=== PATIENT | male | born 1990 | race African-American/Black ===

== ENCOUNTER 2017-05-08 21:33 | Inpatient (IN) | payer SELFPAY ==
[2017-05-08] MEDS ORDERED: RINGERS SOLUTION,LACTATED 2,000 ML IV ONE (21:41)
--- NOTE | 2017-05-08 21:46 | ER Document Report ---
ED General - General Stated Complaint: INCREASED URINATION Time Seen by Provider: 05/08/17 21:41 Notes: Patient is a 27-year-old male without past medical history who presents with 2 weeks of progressively worsening polyuria, polydipsia, and generalized malaise. Patient reports that today he became so weak and felt so terrible that he contacted 911. He arrives somewhat lethargic but is able to respond to questions. He denies a history of similar symptoms in the past. He has no prior history of diabetes. Nothing is seem to improve or worsening symptoms. He has not seen his primary care doctor regarding today's concerns as he does not have one. He denies any vomiting or diarrhea. No chest pain or shortness of breath. He denies any localizing infectious symptoms. - Related Data Allergies/Adverse Reactions: No Known Allergies Allergy (Verified 05/08/17 22:07) Home Medications: Current Home Medications No Home Medications 05/08/17 [History] Past Medical History - General Information source: Patient - Social History Smoking Status: Never Smoker Frequency of alcohol use: None Drug Abuse: None Lives with: Spouse/Significant other Family History: Reviewed & Not Pertinent Review of Systems - Review of Systems Notes: Constitutional: Negative for fever. Positive for generalized malaise HENT: Negative for sore throat. Eyes: Negative for visual changes. Cardiovascular: Negative for chest pain. Respiratory: Negative for shortness of breath. Gastrointestinal: Negative for abdominal pain, vomiting or diarrhea. Genitourinary: Negative for dysuria. Musculoskeletal: Negative for back pain. Skin: Negative for rash. Neurological: Negative for headaches, weakness or numbness. 10 point ROS negative except as marked above and in HPI. Physical Exam - Vital signs Vitals: Temp 97.7 F 05/08/17 21:35 Interpretation: Tachycardic Notes: PHYSICAL EXAMINATION: GENERAL: Mildly lethargic, somewhat ill in appearance but in no acute distress HEAD: Atraumatic, normocephalic. EYES: Pupils equal round and reactive to light, extraocular movements intact, sclera anicteric, conjunctiva are normal. ENT: nares patent, oropharynx clear without exudates. Dry mucous membranes. NECK: Normal range of motion, supple without lymphadenopathy LUNGS: Breath sounds clear to auscultation bilaterally and equal. No wheezes rales or rhonchi. HEART: Regular tachycardia without murmurs ABDOMEN: Soft, nontender, normoactive bowel sounds. No guarding, no rebound. No masses appreciated. EXTREMITIES: Normal range of motion, no pitting or edema. No cyanosis. NEUROLOGICAL: No focal neurological deficits. Moves all extremities spontaneously and on command. PSYCH: Somewhat lethargic GCS is 15 SKIN: Warm, Dry, poor skin turgor, no rashes or lesions noted. Course - Re-evaluation Re-evalutation: 05/08/17 21:45 Patient presents quite ill in appearance, tachycardic, tachypneic with Kussmaul respirations and smells strongly of ketones. And very concerning for new onset diabetes of the presentation of diabetic ketoacidosis. Patient was immediately placed on telemetry. 2 points of IV access will be established and I will open up 2 L of lactated Ringer's wide open. Will hold on insulin until we have clarified the remainder of his labs. Patient is critically ill at this time given his vitals, appearance, and moderate lethargy. Will continue to reassess frequently. 05/08/17 22:29 Initial laboratories are showing a blood pH of 7.04 with an associated compensatory respiratory alkalosis. This is consistent with diabetic ketoacidosis. IV fluids are ongoing. Awaiting the remainder laboratories prior to starting insulin infusion. 05/08/17 22:54 Labs show potassium at 3.8. D5 LR started 300 cc/hr along with an insulin infusion at 0.14units/kg/hr with possium riders at 10 mEq per hour. His mental status remains somewhat lethargic but GCS 15. Have discussed case with Dr. Yusuf who will admit the patient. 05/09/17 00:57 Patient's arrived to the hospital report that the patient had taken "a lot of aspirin". The patient denies this claims that he only took 2-3 aspirin tablets a day and does not know what his is talking about. Salicylate acid level was sent and does not show any concerning elevation of aspirin. Patient continues with a GCS of 15. - Vital Signs Vital signs: Temp Pulse Resp BP Pulse Ox 98.3 F 105 H 20 144/91 H 100 05/09/17 01:51 05/09/17 01:51 05/09/17 01:51 05/09/17 01:51 05/09/17 01:51 - Laboratory Result Diagrams: 05/08/17 22:00 05/09/17 00:03 Laboratory results interpreted by me: 05/08/17 05/08/17 05/08/17 21:44 22:00 22:00 WBC 10.9 H RBC 5.77 H Hgb 17.2 H Hct 51.9 H Band Neutrophils % 8 H Metamyelocytes % 2 H Abs Neuts (Manual) 8.6 H VBG pH VBG pCO2 VBG HCO3 Sodium 136.0 L Carbon Dioxide < 5 L* Glucose 297 H POC Glucose 262 H Magnesium AST 14 L Total Protein 9.2 H Albumin 5.1 H Urine Protein Urine Glucose (UA) Urine Ketones Urine Blood 05/08/17 05/08/17 05/08/17 22:00 22:00 22:28 WBC RBC Hgb Hct Band Neutrophils % Metamyelocytes % Abs Neuts (Manual) VBG pH 7.04 L* VBG pCO2 22.5 L VBG HCO3 5.9 L Sodium Carbon Dioxide Glucose POC Glucose Magnesium 2.4 H AST Total Protein Albumin Urine Protein 100 H Urine Glucose (UA) >=500 H Urine Ketones 80 H Urine Blood MODERATE H 05/08/17 23:00 WBC RBC Hgb Hct Band Neutrophils % Metamyelocytes % Abs Neuts (Manual) VBG pH VBG pCO2 VBG HCO3 Sodium Carbon Dioxide Glucose POC Glucose 241 H Magnesium AST Total Protein Albumin Urine Protein Urine Glucose (UA) Urine Ketones Urine Blood - EKG Interpretation by Me Additional EKG results interpreted by me: 05/09/17 03:33 Sinus tachycardia. Rate 107. No ST elevations or depressions. QTC is 475. Critical Care Note - Critical Care Note Total time excluding time spent on procedures (mins): 37 Comments: Critical care time spent obtaining history from patient or surrogate, discussions with consultants, development of treatment plan with patient or surrogate, evaluation of patient's response to treatment, examination of patient , ordering and performing treatments and interventions, ordering and review of laboratory studies, re-evaluation of patient's condition, ordering and review of radiographic studies and review of old charts Discharge - Discharge Clinical Impression: Diabetic ketoacidosis Qualifiers: Diabetes mellitus type: type 1 Diabetes mellitus complication detail: without coma Qualified Code(s): E10.10 - Type 1 diabetes mellitus with ketoacidosis without coma Condition: Fair Disposition: ADMITTED INPATIENT Admitting Provider: [facility] Unit Admitted: [facility]
[2017-05-08 22:16] LABS: VENOUS BLOOD BASE EXCESS -23.3 mmol/L; VENOUS BLOOD HCO3 5.9 mmol/L (20-32); VENOUS BLOOD PCO2 22.5 mmHg (35-63)
[2017-05-08 22:18] LABS: HEMATOCRIT 51.9 % (37.9-51.0); HEMOGLOBIN 17.2 g/dL (13.5-17.0); MEAN CORPUSCULAR HEMOGLOBIN 29.9 pg (27.0-33.4); MEAN CORPUSCULAR HGB CONC 33.2 g/dL (32.0-36.0); MEAN CORPUSCULAR VOLUME 90 fl (80-97); PLATELET COUNT 175 10^3/uL (150-450); RED BLOOD COUNT 5.77 10^6/uL (4.35-5.55); RED CELL DISTRIBUTION WIDTH 13.7 % (11.5-14.0); WHITE BLOOD COUNT 10.9 10^3/uL (4.0-10.5)
[2017-05-08 22:19] LABS: VENOUS BLOOD PH 7.04 (7.30-7.42)
[2017-05-08] MEDS ORDERED: ONDANSETRON HCL INJ/PF 4 MG/2 ML SDV IV ONE (22:28)
[2017-05-08 22:34] LABS: ALBUMIN 5.1 g/dL (3.5-5.0); BLOOD UREA NITROGEN 12 mg/dL (7-20); CALCIUM 9.4 mg/dL (8.4-10.2); CHLORIDE 103 mmol/L (98-107); GLUCOSE 297 mg/dL (75-110); POTASSIUM 3.8 mmol/L (3.6-5.0); TOTAL PROTEIN 9.2 g/dL (6.3-8.2)
[2017-05-08 22:36] LABS: ALANINE AMINOTRANSFERASE 26 U/L (21-72); ALKALINE PHOSPHATASE 120 U/L (38-126); ASPARTATE AMINO TRANSFERASE 14 U/L (17-59); BILIRUBIN,DIRECT 0.4 mg/dL (0.0-0.4); BILIRUBIN,TOTAL 0.5 mg/dL (0.2-1.3)
[2017-05-08 22:42] LABS: ABSOLUTE LYMPHOCYTES# (MANUAL) 1.9 10^3/uL (0.5-4.7); ABSOLUTE MONOCYTES # (MANUAL) 0.4 10^3/uL (0.1-1.4); ABSOLUTE NEUTROPHILS# (MANUAL) 8.6 10^3/uL (1.7-8.2); BAND NEUTROPHILS % (MANUAL) 8 % (3-5); BASOPHILS % (MANUAL) 0 % (0-2); EOSINOPHILS % (MANUAL) 0 % (0-6); LYMPHOCYTES % (MANUAL) 17 % (13-45); METAMYELOCYTES % (MANUAL) 2 % (0); MONOCYTES % (MANUAL) 4 % (3-13); SEGMENTED NEUTROPHILS % (MAN) 69 % (42-78); TOTAL CELLS COUNTED 100
[2017-05-08 22:44] LABS: PLATELET COMMENT ADEQUATE; PLATELET GIANT PRESENT; PLATELET LARGE PRESENT; TOXIC GRANULATION 1+; TOXIC VACUOLATION PRESENT
[2017-05-08 22:50] LABS: CARBON DIOXIDE < 5 mmol/L (22-30)
[2017-05-08] MEDS ORDERED: DEXTROSE 5%-LACTATED RINGERS 1,000 ML IV ONE (22:53)
[2017-05-08] MEDS ORDERED: POTASSI CL 20 MEQ/50 ML RIDER 20 MEQ/50 ML RTUPB IV SCH (22:53)
[2017-05-08] MEDS ORDERED: INSULIN REG, HUMAN 100 UNIT/ML 3 ML VIAL (PYX) IV ONE (22:54)
[2017-05-08 22:59] LABS: APPEARANCE,URINE CLEAR; BILIRUBIN,URINE NEGATIVE (NEGATIVE); COLOR,URINE STRAW; GLUCOSE, URINE >=500 mg/dL (NEGATIVE); KETONES,URINE 80 mg/dL (NEGATIVE); LEUKOCYTE ESTERASE,URINE NEGATIVE (NEGATIVE); NITRITE,URINE NEGATIVE (NEGATIVE); PROTEIN,URINE 100 mg/dL (NEGATIVE); URINE SPECIFIC GRAVITY 1.023; UROBILINOGEN,URINE NEGATIVE mg/dL (<2.0)
[2017-05-08] MEDS ORDERED: NORMAL SALINE 1000 ML 2,000 ML IV ONE (22:59)
[2017-05-08] MEDS ORDERED: ONDANSETRON HCL INJ/PF 4 MG/2 ML SDV IV PRN (23:00)
[2017-05-08] MEDS ORDERED: ACETAMINOPHEN 325 MG TABLET PO PRN (23:00)
[2017-05-08] MEDS ORDERED: DEXTROSE 40% GEL 15 GM TUBE PO PRN ×2 (23:05)
[2017-05-08] MEDS ORDERED: GLUCAGON,HUMAN RECOMB 1 MG INJ IM PRN (23:05)
[2017-05-08] MEDS ORDERED: DEXTROSE 50%-WATER 25 GM/50 ML DISP.SYRIN IV PRN ×2 (23:05)
[2017-05-08] MEDS ORDERED: SODIUM BICARBONATE 8.4% INJ 50 MEQ/50 ML DISP.SYRIN IV ONE (23:55)
[2017-05-09] MEDS: POTASSI CL 20 MEQ/D5NS 1L 20 MEQ/1,000 ML RTUINJ IV PRN ×2 (00:01→04:13)
[2017-05-09 00:37] LABS: BLOOD UREA NITROGEN 11 mg/dL (7-20); CALCIUM 8.7 mg/dL (8.4-10.2); CHLORIDE 107 mmol/L (98-107); GLUCOSE 269 mg/dL (75-110); POTASSIUM 3.8 mmol/L (3.6-5.0); SODIUM 136.5 mmol/L (137-145)
--- NOTE | 2017-05-09 00:38 | PDOC H&P ---
History of Present Illness Admission Date/PCP: 05/08/17 23:13 No PCP History of Present Illness: JOANNA DIAS is a 27 year old male who presents to the emergency department with complaints of nausea, vomiting, shortness of breath. Patient was found to be in DKA with a pH of 7.4, bicarb <5, and ketones in the urine. Patient reports he has over the past two weeks been feeling poorly with significant polyuria and polydipsia. Patient reports he has been unable to eat. He reports a 10lb weight loss. His significant other reports he took Aspirin today and he admits to taking 3-4 full dose aspirin today. Salicylate and repeat ABG is pending. Past Medical History Medical History: None Past Surgical History Past Surgical History: Reports: None Social History Smoking Status: Never Smoker Frequency of Alcohol Use: None Hx Recreational Drug Use: No Hx Prescription Drug Abuse: No - Advance Directive Resuscitation Status: Full Code Surrogate healthcare decision maker:: Oskar Zimmerman, Mother Family History Family History: DM Parental Family History Reviewed: Yes Children Family History Reviewed: Yes Sibling(s) Family History Reviewed.: Yes Medication/Allergy Home Medications: No Home Medications 05/08/17 Allergies/Adverse Reactions: No Known Allergies Allergy (Verified 05/08/17 22:07) Review of Systems Constitutional: PRESENT: anorexia, weight loss. ABSENT: chills, fever(s), headache(s), weight gain Eyes: ABSENT: visual disturbances Ears: ABSENT: hearing changes Cardiovascular: ABSENT: chest pain, dyspnea on exertion, edema, orthropnea, palpitations Respiratory: PRESENT: dyspnea. ABSENT: cough, hemoptysis, sputum Gastrointestinal: PRESENT: heartburn, nausea, vomiting. ABSENT: abdominal pain , constipation, diarrhea, hematemesis, hematochezia, melena Genitourinary: ABSENT: dysuria, hematuria Musculoskeletal: ABSENT: joint swelling Integumentary: ABSENT: rash, wounds Neurological: ABSENT: abnormal gait, abnormal speech, confusion, dizziness, focal weakness, syncope Psychiatric: ABSENT: anxiety, depression, homidical ideation, suicidal ideation Endocrine: PRESENT: polydipsia, polyuria. ABSENT: cold intolerance, heat intolerance, polyphagia Hematologic/Lymphatic: ABSENT: easy bleeding, easy bruising Physical Exam Vital Signs: Temp Pulse Resp BP Pulse Ox 97.7 F 25 H 163/100 H 100 05/08/17 21:35 05/08/17 22:12 05/08/17 22:12 05/08/17 22:12 General appearance: PRESENT: obese, severe distress, well-developed, well- nourished Head exam: PRESENT: atraumatic, normocephalic Eye exam: PRESENT: conjunctival injection, conjunctiva pink, EOMI, PERRLA. ABSENT: scleral icterus Ear exam: PRESENT: normal external ear exam Mouth exam: PRESENT: dry mucosa, tongue midline Neck exam: ABSENT: JVD, lymphadenopathy, thyromegaly, tracheal deviation Respiratory exam: PRESENT: clear to auscultation bridget, symmetrical, tachypnea, unlabored. ABSENT: accessory muscle use, rales, rhonchi, wheezes Cardiovascular exam: PRESENT: RRR, +S1, +S2. ABSENT: diastolic murmur, rubs, systolic murmur Pulses: PRESENT: normal dorsalis pedis pul Vascular exam: PRESENT: normal capillary refill GI/Abdominal exam: PRESENT: normal bowel sounds, soft. ABSENT: distended, guarding, mass, Chung's sign, organolmegaly, rebound, rigid, tenderness Rectal exam: PRESENT: deferred Extremities exam: PRESENT: full ROM. ABSENT: calf tenderness, clubbing, pedal edema Neurological exam: PRESENT: alert, awake, oriented to person, oriented to place , oriented to time, oriented to situation, CN II-XII grossly intact. ABSENT: motor sensory deficit Psychiatric exam: PRESENT: appropriate affect, normal mood. ABSENT: homicidal ideation, suicidal ideation Skin exam: PRESENT: dry, intact, warm. ABSENT: cyanosis, rash Results Laboratory Results: 05/08/17 05/08/17 05/08/17 22:00 22:00 22:00 WBC 10.9 H Hgb 17.2 H Hct 51.9 H Plt Count 175 VBG pH 7.04 L* VBG pCO2 22.5 L VBG HCO3 5.9 L Sodium 136.0 L Potassium 3.8 Chloride 103 Carbon Dioxide < 5 L* BUN 12 Creatinine 1.11 Glucose 297 H POC Glucose Calcium 9.4 Magnesium Total Bilirubin 0.5 Direct Bilirubin 0.4 AST 14 L ALT 26 Alkaline Phosphatase 120 Troponin I Total Protein 9.2 H Albumin 5.1 H TSH Ur Specific [place] Urine Protein Urine Glucose (UA) Urine Ketones Urine Blood Urine WBC (Auto) Urine RBC (Auto) U Hyaline Cast (Auto) Urine Mucus (Auto) Salicylates 05/08/17 05/08/17 05/08/17 22:00 22:00 22:00 WBC Hgb Hct Plt Count VBG pH VBG pCO2 VBG HCO3 Sodium Potassium Chloride Carbon Dioxide BUN Creatinine Glucose POC Glucose Calcium Magnesium 2.4 H Total Bilirubin Direct Bilirubin AST ALT Alkaline Phosphatase Troponin I < 0.012 Total Protein Albumin TSH 0.61 Ur Specific [place] Urine Protein Urine Glucose (UA) Urine Ketones Urine Blood Urine WBC (Auto) Urine RBC (Auto) U Hyaline Cast (Auto) Urine Mucus (Auto) Salicylates 05/08/17 05/08/17 05/09/17 22:28 23:00 00:03 WBC Hgb Hct Plt Count VBG pH VBG pCO2 VBG HCO3 Sodium Potassium Chloride Carbon Dioxide BUN Creatinine Glucose POC Glucose 241 H Calcium Magnesium Total Bilirubin Direct Bilirubin AST ALT Alkaline Phosphatase Troponin I Total Protein Albumin TSH Ur Specific [place] 1.023 Urine Protein 100 H Urine Glucose (UA) >=500 H Urine Ketones 80 H Urine Blood MODERATE H Urine WBC (Auto) 1 Urine RBC (Auto) 8 U Hyaline Cast (Auto) 20 Urine Mucus (Auto) RARE Salicylates Pending Assessment & Plan - Diagnosis (1) Diabetic ketoacidosis Qualifiers: Diabetes mellitus type: type 1 Diabetes mellitus complication detail: without coma Qualified Code(s): E10.10 - Type 1 diabetes mellitus with ketoacidosis without coma Is this a current diagnosis for this admission?: Yes Plan: Initiate patient on D5NS+20KCL@250mL/hr Initiate Insulin GGT Check troponin q6h Consult inclusion special educator and fourdrinier tender NPO except water and ice chips Zofran prn nausea Check hgbA1c (2) Obesity (BMI 30.0-34.9) Is this a current diagnosis for this admission?: Yes (3) Salicylate overdose Qualifiers: Encounter type: initial encounter Injury intent: accidental or unintentional Qualified Code(s): T39.091A - Poisoning by salicylates, accidental (unintentional), initial encounter Is this a current diagnosis for this admission?: Yes Plan: Concerned for this diagnosis, but unconfirmed at this time Will check a Salicylate level and abg - Time Time Spent: 30 to 50 Minutes Medications reviewed and adjusted accordingly: Yes Within: Other - upon improvement - Inpatient Certification Based on my medical assessment, after consideration of the patient's comorbidities, presenting symptoms, or acuity I expect that the services needed warrant INPATIENT care.: Yes I certify that my determination is in accordance with my understanding of Medicare's requirements for reasonable and necessary INPATIENT services [42 CFR 412.3e].: Yes Medical Necessity: Need For IV Fluids, Need For Continuous Telemetry Monitoring , Risk of Complication if Not Cared For in Hospital Post Hospital Care: D/C Cloth Shader Documentation
[2017-05-09 00:48] LABS: ARTERIAL BLOOD BASE EXCESS -23.6 mmol/L; ARTERIAL BLOOD H2CO3 0.34 mmol/L (1.05-1.35); ARTERIAL BLOOD HCO3 3.4 mmol/L (20-26); ARTERIAL BLOOD O2 SATURATION 97.7 % (94-98); ARTERIAL BLOOD PO2 133.7 mmHg (80-100); ARTERIAL BLOOD TOTAL CO2 3.8 mmol/L (23-27)
[2017-05-09 00:49] LABS: ARTERIAL BLOOD FIO2 ROOM AIR
[2017-05-09 00:51] LABS: ARTERIAL BLOOD PCO2 11.2 mmHg (35-45)
[2017-05-09 00:52] LABS: CARBON DIOXIDE < 5 mmol/L (22-30)
[2017-05-09] MEDS ORDERED: INFLUENZA ADLT QUAD (36MOS+) 2017-18 VAC 0.5 ML SYR IM PRN (02:44)
[2017-05-09 05:14] LABS: HEMATOCRIT 45.8 % (37.9-51.0); HEMOGLOBIN 15.4 g/dL (13.5-17.0); MEAN CORPUSCULAR HEMOGLOBIN 29.9 pg (27.0-33.4); MEAN CORPUSCULAR HGB CONC 33.7 g/dL (32.0-36.0); MEAN CORPUSCULAR VOLUME 89 fl (80-97); PLATELET COUNT 114 10^3/uL (150-450); RED BLOOD COUNT 5.17 10^6/uL (4.35-5.55); RED CELL DISTRIBUTION WIDTH 13.6 % (11.5-14.0); WHITE BLOOD COUNT 9.1 10^3/uL (4.0-10.5)
[2017-05-09 05:22] LABS: BLOOD UREA NITROGEN 10 mg/dL (7-20); CALCIUM 8.2 mg/dL (8.4-10.2); GLUCOSE 218 mg/dL (75-110); MAGNESIUM 2.2 mg/dL (1.6-2.3)
[2017-05-09 05:37] LABS: CHLORIDE 119 mmol/L (98-107); SODIUM 144.9 mmol/L (137-145)
[2017-05-09 05:41] LABS: POTASSIUM 2.9 mmol/L (3.6-5.0)
[2017-05-09 05:42] LABS: CARBON DIOXIDE 5 mmol/L (22-30)
[2017-05-09] MEDS ORDERED: POTASSI CL 20 MEQ/50 ML RIDER 20 MEQ/50 ML RTUPB IV ONE (05:55)
[2017-05-09] MEDS ORDERED: POTASSIUM CHLORIDE 10 MEQ TABLET.SA PO ONE ×3 (05:55→21:22)
[2017-05-09 05:57] LABS: ABSOLUTE LYMPHOCYTES# (MANUAL) 2.5 10^3/uL (0.5-4.7); ABSOLUTE MONOCYTES # (MANUAL) 0.9 10^3/uL (0.1-1.4); ABSOLUTE NEUTROPHILS# (MANUAL) 5.7 10^3/uL (1.7-8.2); BAND NEUTROPHILS % (MANUAL) 8 % (3-5); BASOPHILS % (MANUAL) 0 % (0-2); EOSINOPHILS % (MANUAL) 0 % (0-6); LYMPHOCYTES % (MANUAL) 26 % (13-45); MONOCYTES % (MANUAL) 10 % (3-13); RBC MORPHOLOGY COMMENT NORMO-CYTIC/CHROMIC; SEGMENTED NEUTROPHILS % (MAN) 55 % (42-78); TOTAL CELLS COUNTED 100; TOXIC GRANULATION SLIGHT; TOXIC VACUOLATION PRESENT
[2017-05-09 05:58] LABS: PLATELET COMMENT DECREASED
[2017-05-09] MEDS: POTASSIUM CHLORIDE 20 MEQ/50 ML RTU IV SCH ×2 (06:14→08:06)
[2017-05-09 09:01] LABS: BLOOD UREA NITROGEN 9 mg/dL (7-20); CALCIUM 8.3 mg/dL (8.4-10.2); GLUCOSE 134 mg/dL (75-110)
[2017-05-09 09:36] LABS: CHLORIDE 116 mmol/L (98-107); SODIUM 141.1 mmol/L (137-145)
[2017-05-09 09:38] LABS: ANION GAP 19 (5-19)
[2017-05-09 09:41] LABS: CARBON DIOXIDE 6 mmol/L (22-30); POTASSIUM 2.8 mmol/L (3.6-5.0)
[2017-05-09] MEDS: ENOXAPARIN SODIUM INJ 40 MG/0.4 ML DISP.SYRIN SUBCUT SCH (11:38)
[2017-05-09] MEDS: FAMOTIDINE 20 MG TABLET PO SCH ×2 (11:38→22:57)
--- NOTE | 2017-05-09 13:01 | PDOC PROGRESS REPORT ---
Subjective Progress Note for:: 05/09/17 Subjective:: Feeling better. Still thirsty and tired. Reason For Visit: DKA Physical Exam Vital Signs: Temp Pulse Resp BP Pulse Ox 98.4 F 96 20 122/65 100 05/09/17 11:52 05/09/17 11:52 05/09/17 11:52 05/09/17 11:52 05/09/17 11:52 Intake & Output 05/08/17 05/09/17 05/10/17 06:59 06:59 06:59 Intake Total 2968 Output Total 1515 1450 Balance 1453 -1450 Weight 108.5 kg General appearance: PRESENT: no acute distress, cooperative, obese Head exam: PRESENT: atraumatic, normocephalic Respiratory exam: PRESENT: clear to auscultation bridget. ABSENT: rales, rhonchi, wheezes Cardiovascular exam: PRESENT: RRR. ABSENT: diastolic murmur, rubs, systolic murmur GI/Abdominal exam: PRESENT: normal bowel sounds, soft. ABSENT: distended, guarding, mass, organolmegaly, rebound, tenderness Musculoskeletal exam: PRESENT: ambulatory Neurological exam: PRESENT: alert, awake, oriented to person, oriented to place , oriented to time, oriented to situation, CN II-XII grossly intact. ABSENT: motor sensory deficit Psychiatric exam: PRESENT: appropriate affect, normal mood. ABSENT: homicidal ideation, suicidal ideation Skin exam: PRESENT: dry, intact, warm. ABSENT: cyanosis, rash Results Laboratory Results: 05/09/17 04:13 05/09/17 08:10 05/09/17 05/09/17 05/09/17 00:03 00:30 04:13 WBC RBC Hgb Hct MCV MCH MCHC RDW Plt Count Seg Neutrophils % Lymphocytes % Monocytes % Eosinophils % Basophils % Absolute Neutrophils Absolute Lymphocytes Absolute Monocytes Absolute Eosinophils Absolute Basophils Carbonic Acid 0.34 L HCO3/H2CO3 Ratio 10:1 ABG pH 7.10 L* ABG pCO2 11.2 L* ABG pO2 133.7 H ABG HCO3 3.4 L ABG O2 Saturation 97.7 ABG Base Excess -23.6 FiO2 ROOM AIR Sodium 136.5 L 144.9 Potassium 3.8 2.9 L* Chloride 107 119 H Carbon Dioxide < 5 L* 5 L* Anion Gap Not Reportable 21 H BUN 11 10 Creatinine 0.81 0.82 Est GFR ( Amer) > 60 > 60 Est GFR (Non-Af Amer) > 60 > 60 Glucose 269 H 218 H Calcium 8.7 8.2 L Magnesium 2.2 05/09/17 05/09/17 04:13 08:10 WBC 9.1 RBC 5.17 Hgb 15.4 Hct 45.8 MCV 89 MCH 29.9 MCHC 33.7 RDW 13.6 Plt Count 114 L Seg Neutrophils % Not Reportable Lymphocytes % Not Reportable Monocytes % Not Reportable Eosinophils % Not Reportable Basophils % Not Reportable Absolute Neutrophils Not Reportable Absolute Lymphocytes Not Reportable Absolute Monocytes Not Reportable Absolute Eosinophils Not Reportable Absolute Basophils Not Reportable Carbonic Acid HCO3/H2CO3 Ratio ABG pH ABG pCO2 ABG pO2 ABG HCO3 ABG O2 Saturation ABG Base Excess FiO2 Sodium 141.1 Potassium 2.8 L* Chloride 116 H Carbon Dioxide 6 L* Anion Gap 19 BUN 9 Creatinine 0.75 Est GFR ( Amer) > 60 Est GFR (Non-Af Amer) > 60 Glucose 134 H Calcium 8.3 L Magnesium 05/09/17 05/09/17 04:13 10:59 Troponin I < 0.012 < 0.012 Assessment & Plan - Diagnosis (1) Diabetic ketoacidosis Qualifiers: Diabetes mellitus type: type 1 Diabetes mellitus complication detail: without coma Qualified Code(s): E10.10 - Type 1 diabetes mellitus with ketoacidosis without coma Is this a current diagnosis for this admission?: Yes Plan: Continue insulin drip. He still has an elevated AG. Continue IVFs. Replace lytes as needed. (2) Obesity (BMI 30.0-34.9) Is this a current diagnosis for this admission?: Yes Plan: Dietary consult. - Time Time Spent with patient: 25-34 minutes Medications reviewed and adjusted accordingly: Yes Anticipated discharge: Home - Inpatient Certification Medical Necessity: Need Close Monitoring Due to Risk of Patient Decompensation, Need For IV Fluids, Risk of Complication if Not Cared For in Hospital
[2017-05-09] MEDS: NORMAL SALINE 100 ML with INSULIN REGULAR, HUMAN 100 UNIT IV PRN ×2 (13:28)
[2017-05-09 14:19] LABS: ANION GAP 17 (5-19); BLOOD UREA NITROGEN 10 mg/dL (7-20); CALCIUM 9.1 mg/dL (8.4-10.2); CHLORIDE 116 mmol/L (98-107); GLUCOSE 133 mg/dL (75-110); SODIUM 141.7 mmol/L (137-145)
[2017-05-09 14:40] LABS: CARBON DIOXIDE 9 mmol/L (22-30); POTASSIUM 2.5 mmol/L (3.6-5.0)
[2017-05-09] MEDS ORDERED: SODIUM PHOS,M-BASIC-D-BASIC 40 MMOL in NORMAL SALINE 500 ML IV ONE (14:46)
[2017-05-09] MEDS: POTASSIUM CHLORIDE 10 MEQ TABLET.SA PO SCH ×3 (15:17→22:57)
[2017-05-09 17:18] LABS: BLOOD UREA NITROGEN 10 mg/dL (7-20); CALCIUM 8.9 mg/dL (8.4-10.2); CHLORIDE 118 mmol/L (98-107); GLUCOSE 174 mg/dL (75-110); SODIUM 142.8 mmol/L (137-145)
[2017-05-09 17:23] LABS: ANION GAP 16 (5-19)
[2017-05-09 17:47] LABS: CARBON DIOXIDE 9 mmol/L (22-30); POTASSIUM 2.3 mmol/L (3.6-5.0)
[2017-05-09] MEDS ORDERED: DEXTROSE 5% IV PRN ×3 (18:08)
[2017-05-09] MEDS ORDERED: WATER IV PRN ×3 (18:08)
[2017-05-09] MEDS ORDERED: SODIUM BICARBONATE IV PRN ×3 (18:08)
[2017-05-09] MEDS ORDERED: [UNRECOGNIZED DRUG - OTHER] IV PRN ×3 (18:08)
[2017-05-09] MEDS ORDERED: DEXTROSE 5%-WATER 1000 ML 1,000 ML with SODIUM BICARBONATE 100 MEQ IV PRN ×2 (19:00)
[2017-05-09] MEDS: POTASSI CL 40 MEQ/NS 1L 1,000 ML IV PRN (20:09)
[2017-05-09 21:14] LABS: BLOOD UREA NITROGEN 10 mg/dL (7-20); CHLORIDE 118 mmol/L (98-107); GLUCOSE 128 mg/dL (75-110); PHOSPHORUS 1.2 mg/dL (2.5-4.5); SODIUM 143.9 mmol/L (137-145)
[2017-05-09 21:20] LABS: ANION GAP 18 (5-19)
[2017-05-09] MEDS ORDERED: SODIUM BICARBONATE 8.4% INJ 50 MEQ/50 ML DISP.SYRIN IV ONE ×2 (21:27→21:34)
[2017-05-09] MEDS ORDERED: NORMAL SALINE 1000 ML 1,000 ML IV ONE (21:32)
[2017-05-09 21:34] LABS: CARBON DIOXIDE 8 mmol/L (22-30); POTASSIUM 2.5 mmol/L (3.6-5.0)
[2017-05-09] MEDS: POTASSI CL 40 MEQ/D5-1/2NS 1L 40 MEQ/1,000 ML RTUINJ IV PRN (22:52)
[2017-05-09] MEDS ORDERED: METOCLOPRAMIDE HCL INJ/PF 10 MG/2 ML SDV IV ONE (23:00)
[2017-05-09] MEDS ORDERED: POTASSIUM PHOS,M-BASIC-D-BASIC 60 MMOL in NORMAL SALINE 1000 ML 1,000 ML IV ONE (23:00)
[2017-05-10] MEDS: POTASSIUM CHLORIDE 10 MEQ TABLET.SA PO SCH ×5 (00:33→21:34)
[2017-05-10 00:59] LABS: ANION GAP 12 (5-19); BLOOD UREA NITROGEN 9 mg/dL (7-20); CALCIUM 8.6 mg/dL (8.4-10.2); CARBON DIOXIDE 13 mmol/L (22-30); CHLORIDE 121 mmol/L (98-107); GLUCOSE 174 mg/dL (75-110)
[2017-05-10 01:07] LABS: POTASSIUM 2.9 mmol/L (3.6-5.0)
[2017-05-10] MEDS: POTASSI CL 40 MEQ/D5-1/2NS 1L 40 MEQ/1,000 ML RTUINJ IV PRN ×2 (02:55→07:11)
[2017-05-10 05:26] LABS: ANION GAP 12 (5-19); BLOOD UREA NITROGEN 9 mg/dL (7-20); CALCIUM 8.4 mg/dL (8.4-10.2); CARBON DIOXIDE 13 mmol/L (22-30); CHLORIDE 118 mmol/L (98-107); GLUCOSE 207 mg/dL (75-110); SODIUM 142.6 mmol/L (137-145)
[2017-05-10 08:10] LABS: APPEARANCE,URINE CLEAR; BILIRUBIN,URINE NEGATIVE (NEGATIVE); COLOR,URINE COLORLESS; GLUCOSE, URINE >=500 mg/dL (NEGATIVE); KETONES,URINE 20 mg/dL (NEGATIVE); LEUKOCYTE ESTERASE,URINE NEGATIVE (NEGATIVE); NITRITE,URINE NEGATIVE (NEGATIVE); PROTEIN,URINE NEGATIVE (NEGATIVE); URINE SPECIFIC GRAVITY 1.002; UROBILINOGEN,URINE NEGATIVE mg/dL (<2.0)
[2017-05-10] MEDS: NORMAL SALINE 100 ML with INSULIN REGULAR, HUMAN 100 UNIT IV PRN ×2 (08:55)
[2017-05-10] MEDS: ENOXAPARIN SODIUM INJ 40 MG/0.4 ML DISP.SYRIN SUBCUT SCH (09:32)
[2017-05-10] MEDS: FAMOTIDINE 20 MG TABLET PO SCH ×2 (09:33→21:35)
[2017-05-10 10:28] LABS: ANION GAP 14 (5-19); BLOOD UREA NITROGEN 7 mg/dL (7-20); CALCIUM 8.3 mg/dL (8.4-10.2); CARBON DIOXIDE 13 mmol/L (22-30); CHLORIDE 114 mmol/L (98-107); GLUCOSE 207 mg/dL (75-110)
[2017-05-10 10:33] LABS: POTASSIUM 2.6 mmol/L (3.6-5.0)
[2017-05-10] MEDS ORDERED: DEXTROSE 40% GEL 15 GM TUBE PO PRN ×2 (10:37)
[2017-05-10] MEDS ORDERED: 1/2 NORMAL SALINE 1,000 ML with POTASSIUM CHLORIDE 40 MEQ IV PRN ×2 (10:37)
[2017-05-10] MEDS ORDERED: DEXTROSE 50%-WATER 25 GM/50 ML DISP.SYRIN IV PRN ×2 (10:37)
[2017-05-10] MEDS ORDERED: GLUCAGON,HUMAN RECOMB 1 MG INJ IM PRN (10:37)
--- NOTE | 2017-05-10 11:34 | PDOC PROGRESS REPORT ---
Subjective Progress Note for:: 05/10/17 Subjective:: Summary: 27-year-old male presented to the emergency department with complaints of nausea, vomiting, and shortness of breath. He also reported visual blurring , increased thirst and urinary frequency. He was found to be in DKA. Arterial blood gas pH was 7.1. PCO2 was 11. Bicarbonate was 3.4. His serum carbon dioxide was less than 5. Serum glucose was 297. His anion gap was "not reportable". With repeat testing, came back at 21. He was started on IV fluids as well as a regular insulin drip. He required supplemental potassium, and phosphorus. His hemoglobin A1c was greater than 14% . He was transitioned to subcutaneous insulin 05/10/2017. Anion gap was 14. 05/10. Feeling better. No blurred vision and decreased urinary frequency. He is hungry. Reason For Visit: DKA Physical Exam Vital Signs: Temp Pulse Resp BP Pulse Ox 98.2 F 84 18 129/72 H 99 05/10/17 08:10 05/10/17 08:10 05/10/17 08:10 05/10/17 08:10 05/10/17 08:10 Intake & Output 05/09/17 05/10/17 05/11/17 06:59 06:59 06:59 Intake Total 2968 5289 Output Total 1515 4150 Balance 1453 1139 Weight 108.5 kg 116.5 kg General appearance: PRESENT: no acute distress, cooperative, obese Head exam: PRESENT: atraumatic, normocephalic Eye exam: PRESENT: EOMI Mouth exam: PRESENT: moist Neck exam: ABSENT: carotid bruit, JVD, lymphadenopathy, thyromegaly Respiratory exam: PRESENT: clear to auscultation bridget. ABSENT: rales, rhonchi, wheezes Cardiovascular exam: PRESENT: RRR. ABSENT: diastolic murmur, rubs, systolic murmur GI/Abdominal exam: PRESENT: normal bowel sounds, soft. ABSENT: distended, guarding, mass, organolmegaly, rebound, tenderness Neurological exam: PRESENT: alert, awake, oriented to person, oriented to place , oriented to time, oriented to situation, CN II-XII grossly intact. ABSENT: motor sensory deficit Psychiatric exam: PRESENT: appropriate affect, normal mood. ABSENT: homicidal ideation, suicidal ideation Results Laboratory Results: 05/09/17 04:13 05/10/17 09:55 05/09/17 05/09/17 05/09/17 10:59 13:54 16:40 Sodium 141.7 142.8 Potassium 2.5 L* 2.3 L* Chloride 116 H 118 H Carbon Dioxide 9 L* 9 L* Anion Gap 17 16 BUN 10 10 Creatinine 0.84 0.77 Est GFR ( Amer) > 60 > 60 Est GFR (Non-Af Amer) > 60 > 60 Glucose 133 H 174 H Calcium 9.1 8.9 Phosphorus 0.6 L Urine Color Urine Appearance Urine pH Ur Specific [place] Urine Protein Urine Glucose (UA) Urine Ketones Urine Blood Urine Nitrite Ur Leukocyte Esterase 05/09/17 05/10/17 05/10/17 20:12 00:28 04:23 Sodium 143.9 146.0 H 142.6 Potassium 2.5 L* 2.9 L* 3.0 L* Chloride 118 H 121 H 118 H Carbon Dioxide 8 L* 13 L 13 L Anion Gap 18 12 12 BUN 10 9 9 Creatinine 0.80 0.77 0.77 Est GFR ( Amer) > 60 > 60 > 60 Est GFR (Non-Af Amer) > 60 > 60 > 60 Glucose 128 H 174 H 207 H Calcium 9.0 8.6 8.4 Phosphorus 1.2 L Urine Color Urine Appearance Urine pH Ur Specific [place] Urine Protein Urine Glucose (UA) Urine Ketones Urine Blood Urine Nitrite Ur Leukocyte Esterase 05/10/17 05/10/17 07:45 09:55 Sodium 141.0 Potassium 2.6 L* Chloride 114 H Carbon Dioxide 13 L Anion Gap 14 BUN 7 Creatinine 0.74 Est GFR ( Amer) > 60 Est GFR (Non-Af Amer) > 60 Glucose 207 H Calcium 8.3 L Phosphorus Urine Color COLORLESS Urine Appearance CLEAR Urine pH 5.0 Ur Specific [place] 1.002 Urine Protein NEGATIVE Urine Glucose (UA) >=500 H Urine Ketones 20 H Urine Blood SMALL H Urine Nitrite NEGATIVE Ur Leukocyte Esterase NEGATIVE 05/09/17 05/09/17 04:13 10:59 Troponin I < 0.012 < 0.012 Assessment & Plan - Diagnosis (1) Diabetic ketoacidosis Qualifiers: Diabetes mellitus type: type 1 Diabetes mellitus complication detail: without coma Qualified Code(s): E10.10 - Type 1 diabetes mellitus with ketoacidosis without coma Is this a current diagnosis for this admission?: Yes Plan: Resolved. Anion gap is normal. Transition to subcu insulin. He will need diabetes education prior to discharge. He will also need a PCP. Anticipate discharge in the next 24-48 hours. (2) Obesity (BMI 30.0-34.9) Is this a current diagnosis for this admission?: Yes Plan: Dietary consult. Encouraged patient to lose weight. - Time Time Spent with patient: 15-24 minutes Medications reviewed and adjusted accordingly: Yes Anticipated discharge: Home - Inpatient Certification Medical Necessity: Need For IV Fluids
[2017-05-10] MEDS: POTASSI CL 40 MEQ/NS 1L 1,000 ML IV PRN (12:25)
[2017-05-10 13:23] LABS: ANION GAP 15 (5-19); BLOOD UREA NITROGEN 7 mg/dL (7-20); CALCIUM 8.5 mg/dL (8.4-10.2); CARBON DIOXIDE 11 mmol/L (22-30); CHLORIDE 113 mmol/L (98-107); GLUCOSE 260 mg/dL (75-110); SODIUM 139.2 mmol/L (137-145)
[2017-05-10 13:43] LABS: POTASSIUM 2.7 mmol/L (3.6-5.0)
[2017-05-10] MEDS: INSULIN GLARGINE,HUM.REC.ANLOG 300 UNIT/3 ML INSULN.PEN SUBCUT SCH (13:51)
[2017-05-10] MEDS: INSULIN LISPRO 100 UNIT/ML 3 ML VIAL SUBCUT PRN ×2 (17:03→21:39)
[2017-05-11 00:07] LABS: ANION GAP 12 (5-19); BLOOD UREA NITROGEN 13 mg/dL (7-20); CALCIUM 8.8 mg/dL (8.4-10.2); CARBON DIOXIDE 16 mmol/L (22-30); CHLORIDE 109 mmol/L (98-107); GLUCOSE 377 mg/dL (75-110); SODIUM 137.2 mmol/L (137-145)
[2017-05-11 00:18] LABS: POTASSIUM 3.8 mmol/L (3.6-5.0)
[2017-05-11] MEDS: POTASSI CL 40 MEQ/NS 1L 1,000 ML IV PRN (00:21)
[2017-05-11] MEDS: POTASSIUM CHLORIDE 10 MEQ TABLET.SA PO SCH (02:00)
[2017-05-11] MEDS: INSULIN LISPRO 100 UNIT/ML 3 ML VIAL SUBCUT PRN ×4 (08:57→23:08)
[2017-05-11] MEDS: ENOXAPARIN SODIUM INJ 40 MG/0.4 ML DISP.SYRIN SUBCUT SCH (09:06)
[2017-05-11] MEDS: FAMOTIDINE 20 MG TABLET PO SCH ×2 (09:08→23:09)
--- NOTE | 2017-05-11 11:06 | EKG REPORT ---
SEVERITY:- BORDERLINE ECG - SINUS TACHYCARDIA BORDERLINE PROLONGED QT INTERVAL : Confirmed by: Doreen Holt MD 11-May-2017 11:05:06
[2017-05-11] MEDS: INSULIN GLARGINE,HUM.REC.ANLOG 300 UNIT/3 ML INSULN.PEN SUBCUT SCH (12:22)
[2017-05-11 12:28] LABS: ANION GAP 13 (5-19); BLOOD UREA NITROGEN 10 mg/dL (7-20); CALCIUM 9.5 mg/dL (8.4-10.2); CARBON DIOXIDE 22 mmol/L (22-30); CHLORIDE 104 mmol/L (98-107); GLUCOSE 318 mg/dL (75-110); POTASSIUM 4.1 mmol/L (3.6-5.0); SODIUM 139.2 mmol/L (137-145)
--- NOTE | 2017-05-11 12:43 | PDOC PROGRESS REPORT ---
Subjective Progress Note for:: 05/11/17 Subjective:: The patient is a 27 yom who presented in DKA. He is eating now and tolerating subQ insulin, but, his blood sugars are still poorly controlled. HgA1C was elevated at 14. Reason For Visit: DKA Physical Exam Vital Signs: Temp Pulse Resp BP Pulse Ox 98.8 F 90 20 128/78 H 100 05/11/17 11:29 05/11/17 11:29 05/11/17 11:29 05/11/17 11:29 05/11/17 11:29 Intake & Output 05/10/17 05/11/17 05/12/17 06:59 06:59 06:59 Intake Total 5289 6320 902 Output Total 4150 4650 1300 Balance 1139 1670 -398 Weight 116.5 kg 116.7 kg Additional comments: The patient appears to be a very healthy 27-year-old male. He does not appear to be in any distress. His mentation is appropriate. His facial appearance is unremarkable. His lungs are clear to auscultation bilaterally. His cardiac exam is regular without murmurs, gallops or rubs. The abdomen is soft, flat and benign. The lower extremities are without any edema. The skin is warm, dry and intact without lesions or rashes. Results Laboratory Results: 05/09/17 04:13 05/10/17 05/10/17 12:50 23:35 Sodium 139.2 137.2 Potassium 2.7 L* 3.8 D Chloride 113 H 109 H Carbon Dioxide 11 L 16 L Anion Gap 15 12 BUN 7 13 Creatinine 0.70 0.86 Est GFR ( Amer) > 60 > 60 Est GFR (Non-Af Amer) > 60 > 60 Glucose 260 H 377 H Calcium 8.5 8.8 05/09/17 05/09/17 04:13 10:59 Troponin I < 0.012 < 0.012 Assessment & Plan - Diagnosis (1) Diabetic ketoacidosis Qualifiers: Diabetes mellitus type: type 1 Diabetes mellitus complication detail: without coma Qualified Code(s): E10.10 - Type 1 diabetes mellitus with ketoacidosis without coma Is this a current diagnosis for this admission?: Yes (2) Obesity (BMI 30.0-34.9) Is this a current diagnosis for this admission?: Yes - Time Time Spent with patient: 15-24 minutes - Inpatient Certification Medical Necessity: Risk of Complication if Not Cared For in Hospital - Plan Summary Plan Summary: I have stopped the patient's IV fluids today. We will continue subcutaneous insulin with sliding scale. Prior to discharge the patient will need a primary care navigator. The patient's blood sugars are still in poor control and he is not yet appropriate for discharge.
[2017-05-11 14:33] LABS: APPEARANCE,URINE CLEAR; BILIRUBIN,URINE NEGATIVE (NEGATIVE); COLOR,URINE STRAW; GLUCOSE, URINE >=500 mg/dL (NEGATIVE); KETONES,URINE 80 mg/dL (NEGATIVE); LEUKOCYTE ESTERASE,URINE NEGATIVE (NEGATIVE); NITRITE,URINE NEGATIVE (NEGATIVE); PROTEIN,URINE NEGATIVE (NEGATIVE); URINE SPECIFIC GRAVITY 1.025; UROBILINOGEN,URINE NEGATIVE mg/dL (<2.0)
[2017-05-11 18:15] LABS: ANION GAP 13 (5-19); BLOOD UREA NITROGEN 14 mg/dL (7-20); CALCIUM 9.1 mg/dL (8.4-10.2); CARBON DIOXIDE 20 mmol/L (22-30); CHLORIDE 102 mmol/L (98-107); GLUCOSE 335 mg/dL (75-110); POTASSIUM 3.9 mmol/L (3.6-5.0); SODIUM 134.7 mmol/L (137-145)
[2017-05-12] MEDS: FAMOTIDINE 20 MG TABLET PO SCH (09:15)
[2017-05-12] MEDS: INSULIN LISPRO 100 UNIT/ML 3 ML VIAL SUBCUT PRN ×2 (09:15→12:18)
[2017-05-12] MEDS: ENOXAPARIN SODIUM INJ 40 MG/0.4 ML DISP.SYRIN SUBCUT SCH (09:16)
[2017-05-12 11:21] LABS: ANION GAP 13 (5-19); BLOOD UREA NITROGEN 12 mg/dL (7-20); CALCIUM 9.8 mg/dL (8.4-10.2); CARBON DIOXIDE 25 mmol/L (22-30); CHLORIDE 97 mmol/L (98-107); GLUCOSE 345 mg/dL (75-110); POTASSIUM 4.5 mmol/L (3.6-5.0); SODIUM 134.5 mmol/L (137-145)
[2017-05-12] MEDS: INSULIN GLARGINE,HUM.REC.ANLOG 300 UNIT/3 ML INSULN.PEN SUBCUT SCH (12:18)
--- NOTE | 2017-05-12 13:08 | PDOC DISCHARGE SUMMARY ---
General - Admit/Disc Date/PCP Admission Date/Primary Care Provider: 05/08/17 23:13 Discharge Date: 05/12/17 - Discharge Diagnosis (1) Diabetic ketoacidosis Is this a current diagnosis for this admission?: Yes (2) Obesity (BMI 30.0-34.9) Is this a current diagnosis for this admission?: Yes - Additional Information Resuscitation Status: Full Code Discharge Diet: Diabetic Discharge Activity: Activity As Tolerated Prescriptions: Insulin Glargine,Hum.rec.anlog [Lantus Insulin 100 Unit/mL] 18 unit SUBCUT DAILY @1200 14 Days #1 insuln.pen Insulin Lispro [Humalog Insulin (Lispro) 100 unit/mL] 0 - 12 unit SUBCUT [facility] PRN #1 PRN Reason: Home Medications: Insulin Glargine,Hum.rec.anlog [Lantus Insulin 100 Unit/mL] 18 unit SUBCUT DAILY @1200 14 Days #1 insuln.pen 05/12/17 Insulin Lispro [Humalog Insulin (Lispro) 100 unit/mL] 0 - 12 [facility] 05/12/17 History of Present Illness History of Present Illness: JOANNA DIAS is a 27 year old male who presents to the emergency department with complaints of nausea, vomiting, shortness of breath. Patient was found to be in DKA with a pH of 7.4, bicarb <5, and ketones in the urine. Patient reports he has over the past two weeks been feeling poorly with significant polyuria and polydipsia. Patient reports he has been unable to eat. He reports a 10lb weight loss. His significant other reports he took Aspirin today and he admits to taking 3-4 full dose aspirin today. Salicylate and repeat ABG is pending. Hospital Course Hospital Course: The patient was admitted to the intensive care unit in diabetic ketoacidosis. He was started on an insulin drip and maintained on a diabetic ketoacidosis protocol with IV fluids, electrolyte replacement and intravenous insulin. He was eventually converted to subcutaneous insulin with glargine and sliding scale. The patient was ruled out for salicylate toxicity. The patient was seen by our dietitian and received diabetic education teaching and teaching regarding how to use and take his insulin. The patient likely has had underlying diabetes mellitus for several months or years. It does not appear that an infection precipitated his current illness. He will need further testing to determine if he has type I or type 2 diabetes mellitus so that we can proceed with appropriate therapy. Patient also agrees to begin a gradual weight loss and exercise regimen. Physical Exam Vital Signs: Temp Pulse Resp BP Pulse Ox 98.2 F 105 H 18 134/80 H 100 05/12/17 08:43 05/12/17 08:43 05/12/17 08:43 05/12/17 08:43 05/12/17 08:43 Intake & Output 05/11/17 05/12/17 05/13/17 06:59 06:59 06:59 Intake Total 6320 3078 Output Total 4650 1300 Balance 1670 1778 Weight 116.7 kg 116.7 kg Additional comments: The patient appears normal. His cognition and mentation are appropriate. His facial appearance is normal. His lungs are clear to auscultation bilaterally. His cardiac exam is regular without murmurs, gallops or rubs. The abdomen is soft and flat. Bowel sounds are present. There is no guarding or rebound noted and there are no hernias or masses present. The lower extremities are warm to touch without edema. The skin is warm, dry and intact. No lesions or rashes are present. Results Laboratory Results: 05/09/17 04:13 05/12/17 10:40 05/11/17 05/11/17 05/12/17 13:45 17:50 10:40 Sodium 134.7 L 134.5 L Potassium 3.9 4.5 Chloride 102 97 L Carbon Dioxide 20 L 25 Anion Gap 13 13 BUN 14 12 Creatinine 0.85 0.81 Est GFR ( Amer) > 60 > 60 Est GFR (Non-Af Amer) > 60 > 60 Glucose 335 H 345 H Calcium 9.1 9.8 Urine Color STRAW Urine Appearance CLEAR Urine pH 6.0 Ur Specific [place] 1.025 Urine Protein NEGATIVE Urine Glucose (UA) >=500 H Urine Ketones 80 H Urine Blood SMALL H Urine Nitrite NEGATIVE Ur Leukocyte Esterase NEGATIVE Urine WBC (Auto) 0 Urine RBC (Auto) 0 05/09/17 05/09/17 04:13 10:59 Troponin I < 0.012 < 0.012 Plan Discharge Plan: 1. The patient will be discharged today to home 2. The patient will need to be scheduled with a primary care provider as he does not have one. The hospital will arrange for this. 3. The patient will be discharged on glargine with sliding scale insulin. He will continue the same regimen as he has been receiving in the hospital. It is anticipated that he will have changes to his regimen and therefore he will have enough insulin for approximately 2 weeks. Time Spent: Less than 30 Minutes
[2017-05-12 14:28] VITALS: BP 135/76
[2017-05-13 16:05] LABS: ANION GAP 21 (5-19)
== END 2017-05-12 14:44 | disposition home or self-care (01) | DRG 639 ==
LOC: ER 21:33 → EH 23:13 → 3S 05-09 01:44
PROVIDERS: ADMIT Family Medicine; ATTEND Family Medicine
DX: E11.10 Type 2 diabetes mellitus with ketoacidosis without coma (principal); E66.9 Obesity, unspecified; Z68.33 Body mass index [BMI] 33.0-33.9, adult
CPT/HCPCS: 36415; 80048; 80053; 80307; 81001; 82803; 82962; 83036; 83735; 84100; 84443; 84484; 85025; 90686; 93005; 93010; 96361; 96374; 99291; J1650; J1815; J2405; J2765; J3480; J3490; J7030; J7040; J7060; J7120

== ENCOUNTER 2017-05-25 15:08 | Emergency (ER) | payer SELFPAY ==
--- NOTE | 2017-05-25 16:02 | ER Document Report ---
HPI - HPI Patient complains to provider of: needs cheaper insulin Pain Level: Denies Context: 27 yo male recently dx diabetic needs cheaper presription for insulin. Can't afford the Lantus and humalog. Wants 70/30 which Darlene suggested- a lot cheaper. Took his 18 units lantus and 6 units sliding scale today. Associated Symptoms: None Exacerbated by: Denies Relieved by: Denies - ROS ROS below otherwise negative: Yes Systems Reviewed and Negative: Yes All other systems reviewed and negative Past Medical History - General Information source: Patient - Social History Smoking Status: Never Smoker Frequency of alcohol use: None Drug Abuse: None Lives with: Family Family History: Reviewed & Not Pertinent Endocrine Medical History: Reports: Hx Diabetes Mellitus Type 2 Renal/ Medical History: Denies: Hx Peritoneal Dialysis Surgical Hx: Negative Vertical Provider Document - CONSTITUTIONAL Agree With Documented VS: Yes Exam Limitations: No Limitations General Appearance: No Apparent Distress - INFECTION CONTROL TRAVEL OUTSIDE OF THE [place] IN LAST 30 DAYS: No - HEENT HEENT: Normocephalic - NECK Neck: Supple - RESPIRATORY Respiratory: Breath Sounds Normal, No Respiratory Distress O2 Sat by Pulse Oximetry: 98 - CARDIOVASCULAR Cardiovascular: Regular Rate, Regular Rhythm - GI/ABDOMEN Gastrointestinal: Abdomen Soft, Abdomen Non-Tender - MUSCULOSKELETAL/EXTREMETIES Musculoskeletal/Extremeties: FERNANDO JOSEPH - NEURO Level of Consciousness: Awake, Alert, Appropriate - DERM Integumentary: Warm, Dry, No Rash Course - Re-evaluation Re-evalutation: 05/25/17 16:[address] Kwon who did the conversion from Lantus and Humalog to 70/30 and Humulin R for the patient. He wants the patient to take 70 3030 units in the morning with breakfast and 20 units 70/30 at bedtime with a snack (start tonight ). He also recommended Humulin regular sliding scale to start with 2 units sliding scale for blood sugar greater than 150 to increase by 2 units every 50 glucose elevation up to 10 units SQ 05/25/17 16:39 accucheck 473 in ER. 05/25/17 21:40 - Vital Signs Vital signs: Temp Pulse Resp BP Pulse Ox 98.0 F 83 20 144/79 H 98 05/25/17 15:17 05/25/17 15:17 05/25/17 15:17 05/25/17 15:17 05/25/17 15:17 Discharge - Discharge Clinical Impression: Hyperglycemia Diabetes Qualifiers: Diabetes mellitus type: type 2 Diabetes mellitus complication status: with hyperglycemia Diabetes mellitus half-way insulin use: with half-way use Qualified Code(s): E11.65 - Type 2 diabetes mellitus with hyperglycemia Condition: Good Disposition: HOME, SELF-CARE Instructions: [facility], Diabetes ([facility]), Hyperglycemia ([facility]) Additional Instructions: start the 70/30 insulin tonight Insulin 70/30 Novolog 30 units subcutaneously every morning with breakfast Insulin 70/30 Novolog 20 units subcutaneously nightly before bed with snack. Continue the same sliding scale that you were given when discharged from the hospital except use Humulin regular insulin-prescription given Return to ER any concerns, feeling bad or elevated glucose that the insulin won' t control Prescriptions: Insulin Aspart Protam & Aspart [Novolog Mix 70-30 Vial] 100 unit SQ BID #1 ml Insulin Regular, Human [Humulin R (Reg) Insulin 100 unit/mL] 0 unit SUBCUT .SLD SCALE #10 ml
[2017-05-25] MEDS ORDERED: INSULIN REG, HUMAN 100 UNIT/ML 3 ML VIAL (PYX) SUBCUT ONE (16:25)
[2017-05-25 16:47] VITALS: BP 142/78
== END 2017-05-25 16:45 | disposition home or self-care (01) ==
LOC: ER 15:08
DX: E11.65 Type 2 diabetes mellitus with hyperglycemia (principal); Z79.4 Long term (current) use of insulin
CPT/HCPCS: 99282; 82962; J1815